=== PATIENT | male | born 1995 | race Caucasian/White ===

== ENCOUNTER 2024-05-19 10:04 | Outpatient (OUT) | payer MEDICAID, SELFPAY ==
--- NOTE | 2024-05-19 10:16 | XR_ITS ---
The [address] [address] Patient Name: HAMMAD BAILON MRN: [id number] date: 1995 Sex: M Assigned Patient Location: [place] Current Patient Location: Accession/Order Number: [id number] Exam Date: 05/19/2024 10:50 Report Date: 05/20/2024 07:30 At the request of: KHADIJAH BHAT Procedure: XR abdomen min 2V EXAMINATION: XR abdomen min 2V HISTORY: Abdominal Pain COMPARISON: No relevant comparison available. FINDINGS: BOWEL GAS PATTERN: No abnormal dilation or deviation. Moderate amount of stool throughout the colon CALCIFICATIONS: None significant. OTHER: Negative. No abnormal gaseous collections. XR/XR abdomen min 2V IMPRESSION: Moderate stool throughout the colon. Electronically authenticated by: STARLA SINGH Date: 05/20/2024 07:30
--- NOTE | 2024-05-19 10:16 | US_ITS ---
The [address] [address] Patient Name: HAMMAD BAILON MRN: [id number] date: 1995 Sex: M Assigned Patient Location: [place] Current Patient Location: Accession/Order Number: [id number] Exam Date: 05/19/2024 10:17 Report Date: 05/19/2024 10:58 At the request of: KHADIJAH BHAT Procedure: US abdomen complete EXAMINATION: US abdomen complete HISTORY: Abdominal Pain COMPARISON: No relevant comparison available. FINDINGS: The liver is normal in size, contour and echotexture. No focal mass. Hepatopedal flow in the portal vein. The gallbladder is normal. The wall measures 1.5 mm. Negative sonographic Osman sign. Common bile duct measures 4.6 mm. The visualized pancreas is normal The right kidney is normal measuring 8.7 x 5.3 x 6.9 cm. Left kidney is normal measuring 9.7 x 3.9 x 5.1 cm The visualized aorta and IVC are normal The spleen is normal. Spleen measures 9.7 cm in length. No ascites US/US abdomen complete IMPRESSION: No abnormality Electronically authenticated by: STARLA SINGH Date: 05/19/2024 10:58
== END 2024-05-19 10:05 | disposition home or self-care (01) ==
LOC: US 10:08
PROVIDERS: Family Provider Family Medicine; PCP Family Medicine; Visit Provider Family Medicine
DX: R10.9 Unspecified abdominal pain (principal)
CPT/HCPCS: 74019; 76700